=== PATIENT | female | born 1970 | race Caucasian/White ===

== ENCOUNTER 2018-04-02 15:24 | Emergency (ER) | payer SELFPAY ==
[~2018-04-02] VITALS: Ht 170.2 cm; Wt 127.3 kg
[~2018-04-02 15:24] MED LIST: ALBUTEROL S2.5 MG/.5 IN; AMBIEN5 MG OR; AMOXICILLIN500 MG OR; AMOXICILLIN500 MG PO; BACTRIM DS1 TAB OR; BI POLAR MED; CELEXA10 MG PO; CIPRO HC AU; FLEXERIL OR; LORTAB 10 OR; LORTAB 10 PO; LORTAB 5 OR; LORTAB5 OR; LORTAB5 PO; MECLIZINE25 M1 PO; MYCOSTATIN100000 MG EX; NAPROXEN500 MG OR; NO; NO HOME MEDS; PENICILLN VK250 MG PR; PERCOCET 5/325M1 TAB OR; PREDNISONE20 MG OR; REGLAN10 MG OR; SEPTRA DS1 TAB OR; TRAZODONE50 MG PO; ULTRAM50 M1 PO; ULTRAM50 MG PO; VENTOLIN HFA IN; ZITHROMAX500 MG OR
[2018-04-02 15:53] LABS: URINE BILIRUBIN - DIPSTICK NEGATIVE (NEGATIVE); URINE BLOOD DIPSTICK SMALL (NEGATIVE); URINE COLOR YELLOW; URINE GLUCOSE - DIPSTICK NEGATIVE (NEGATIVE); URINE KETONE NEGATIVE (NEGATIVE); URINE NITRITE - DIPSTICK NEGATIVE (Negative); URINE PROTEIN - DIPSTICK NEGATIVE (NEG-TRACE); URINE UROBILINOGEN - DIPSTICK 0.2 E.U./dL (0.2)
[2018-04-02 15:55] LABS: URINE LEUK ESTERASE SMALL (NEGATIVE)
[2018-04-02 15:59] LABS: URINE SQUAMOUS EPITHELIAL CELL FEW EPI/hpf (0-FEW); URINE WBC 50-100 WBC/hpf (0-5)
[2018-04-02] MEDS ORDERED: PYRIDIUM200 MG PO (16:04)
[2018-04-02] MEDS ORDERED: KEFLEX500 M1 PO (16:04)
[2018-04-02 16:12] VITALS: BP 161/78
== END 2018-04-02 16:18 | disposition home or self-care (01) | DRG 690 ==
LOC: ED 15:24
PROVIDERS: Emergency Medicine
DX: N39.0 Urinary tract infection, site not specified (principal); I10 Essential (primary) hypertension; J45.909 Unspecified asthma, uncomplicated; F17.210 Nicotine dependence, cigarettes, uncomplicated; Z87.442 Personal history of urinary calculi; Z87.440 Personal history of urinary (tract) infections

== ENCOUNTER 2019-01-15 01:43 | Emergency (ER) | payer SELFPAY ==
[~2019-01-15] VITALS: Ht 170.2 cm; Wt 113.6 kg
[~2019-01-15 01:43] MED LIST changes: +KEFLEX500 M1 PO; +PYRIDIUM200 MG PO
[2019-01-15] MEDS ORDERED: TRAMADOL HYDROC50 MG PO (03:04)
[2019-01-15 03:55] VITALS: BP 153/90
== END 2019-01-15 03:57 | disposition home or self-care (01) | DRG 605 ==
LOC: ED 01:43
DX: S00.83XA Contusion of other part of head, initial encounter (principal); I10 Essential (primary) hypertension; F17.210 Nicotine dependence, cigarettes, uncomplicated; Y04.2XXA Assault by strike against or bumped into by another person, initial encounter; Y92.009 Unspecified place in unspecified non-institutional (private) residence as the place of occurrence of the external cause

== ENCOUNTER 2019-09-29 11:04 | Observation (INO) | payer BC ==
[~2019-09-29] VITALS: Ht 170.2 cm; Wt 131.1 kg
[~2019-09-29 11:04] MED LIST changes: +TRAMADOL HYDROC50 MG PO
--- NOTE | 2019-09-29 11:10 | NUR ---
PT AMB TO ROOM BECOMES SLIGHTLY TACHYPNEIC WITH AUDIBLE WHEEZING. O2 SAT 100% ON RA
[2019-09-29 12:02] LABS: HEMATOCRIT 48.2 % (37.0-47.0); HEMOGLOBIN 15.7 g/dl (12.0-16.0); IMMATURE GRANULOCYTES 0.4 % (0.0-5.0); MEAN CELL VOLUME 86.1 fL CALC (80.0-100.0); MEAN CORPUSCULAR HGB CONC 32.6 g/dL CAL (32.0-36.0); NEUT# 7.5 thou/uL (2.00-7.15); RED BLOOD COUNT 5.6 mill/uL (4.20-5.60)
--- NOTE | 2019-09-29 12:15 | NUR ---
PT RESTING AND DENIES ANY NEEDS, CAN NO LONGER HEAR WHEEZING WITHOUT STETH. CALL LIGHT WITHIN REACH
--- NOTE | 2019-09-29 12:18 | NUR ---
BG RECHECK AT 422. MD NOTIFIED. PT DENIES ANY PAINS OR NEEDS. CALL LIGHT WITHIN REACH
--- NOTE | 2019-09-29 12:23 | NUR ---
PT AMB TO RESTROOM IN NO DISTRESS. PT TOLERATED WELL
[2019-09-29 12:26] LABS: ALBUMIN 4.1 g/dL (3.2-5.0); ALKALINE PHOSPHATASE 64 u/l (38-126); ANION GAP 11 (6-22 (CALC)); BUN 21 mg/dL (7-17); BUN/CREATININE RATIO 38 (12-20 (CALC)); CARBON DIOXIDE 27 mmol/l (22-30); CHLORIDE 98 mmol/l (95-108); CREATININE 0.6 mg/dL (0.5-1.0); GFR > 60 ML/MIN (>=60 (CALC)); GFR FOR AFR.AMER. > 60 ML/MIN (>=60 (CALC)); POTASSIUM 3.2 mmol/l (3.5-5.1); SGOT/AST 19 u/l (14-36); SODIUM 133 mmol/l (137-146); TOTAL PROTEIN 7.6 g/dL (6.3-8.2)
[2019-09-29 12:27] LABS: BILIRUBIN, TOTAL 0.4 mg/dL (0.0-1.4)
[2019-09-29 12:32] LABS: C-REACTIVE PROTEIN < 0.5 mg/dL (0-0.9)
--- NOTE | 2019-09-29 13:17 | NUR ---
PT STARTED TO VOMIT PERFUSLY AFTER INITIATING ANTIBIOTICS. SHE CLENCHES HER CHEST AND STATES HAVING AN ABRUPT PAIN OF 8/10. INFUSION STOPPED AND MD NOTIFIED. ANAPHYLAXIS MEDICATIONS USED. MED D/C PER MD. PT WILL BE MONITORED CLOSELY.
--- NOTE | 2019-09-29 13:30 | NUR ---
PT RESTING ON STRETCHER WITH CALL LIGHT WITHIN REACH.
--- NOTE | 2019-09-29 13:40 | NUR ---
ANTIBIOTICS INFUSING INTO PATENT IV
[2019-09-29] MEDS ORDERED: METFORMIN HCL500 M1 PO (14:26)
[2019-09-29] MEDS ORDERED: HYDROCHLOROTH12.5 MG PO (14:27)
[2019-09-29] MEDS ORDERED: SIMVASTATIN10 MG PO (14:27)
[2019-09-29] MEDS ORDERED: LISINOPRIL20 MG PO (14:28)
[2019-09-29] MEDS ORDERED: VENTOLIN H108 MCG/AC INHW/SPAC (14:29)
--- NOTE | 2019-09-29 14:30 | NUR ---
ASSISTED PT TO BR, BANDAR BERNARD
--- NOTE | 2019-09-29 14:30 | NUR ---
PT RESTING WITH EYES CLOSED
--- NOTE | 2019-09-29 15:40 | NUR ---
CALLED DR. MUNOZ FOR ORDERS AND UPDATE ON PT, NEW ORDERS PLACED WHERE PT IS GOING TO CHANGE FROM MED SURG TO ICU. TREATMENTS IN PROCESS
--- NOTE | 2019-09-29 15:40 | NUR ---
PT NOTIFIED OF PENDING STATUS AND WAIT BECAUSE OF BUSY ER. CALL LIGHT WITHIN REACH
--- NOTE | 2019-09-29 16:40 | NUR ---
PT NEEDED ASSISTANCE TO BR, PT DISCONNECTED AND ASSISTED TO BED SIDE COMMODE
--- NOTE | 2019-09-29 16:46 | NUR ---
PT UPDATED ON WAIT AND CHANGE OF EVENTS, HE VERBALIZED UNDERSTANDING. FLUIDS CONTINUE TO BE ADMINSITERED
--- NOTE | 2019-09-29 17:30 | NUR ---
PT NOTIFIED OF STATUS, NEEDS MET AND BELONGINGS BAGGED. CALL LIGHT WITHIN REACH
--- NOTE | 2019-09-29 18:25 | NUR ---
PT ARRIVED FROM ER VIA STRETCHER AMBUALTED TO THE UNIT.
--- NOTE | 2019-09-29 18:27 | NUR ---
GAVE REPORT TO CASA
--- NOTE | 2019-09-29 18:30 | NUR ---
PT TRANSPORTED TO [facility] STABLE AND IN NO DISTRESS. CARE ASSUMED TO CASA Admission Note Report Given to: Transported by: Wheelchair X Stretcher Transported with: X Nurse Transporter X Patent IV O2 X Inspector Location: ICU X MS2
[2019-09-29 18:48] VITALS: BP 131/70
--- NOTE | 2019-09-29 20:38 | NUR ---
PT MEDICATED ORDERS PROVIDE. TYLENOL PROVIDED FOR HEADACHE. PT DENIES ANY OTHER NEEDS AT THIS TIME.
--- NOTE | 2019-09-29 21:16 | NUR ---
PT MEDICATED ORDERS PROVIDE AND ASSESSMENT COMPLETED AT THIS TIME. MEDICATIONS REVIEWED W/EDUCATION AND ALLERGY HISTORY UPDATED AND DISCUSSED. ADMISSION QUESTIONS REVIEWED. PT MEDICATED W/TYLENOL FOR BRITO. ICE PROVIDED EXTRA PER REQUEST. DENIES ANY OTHER NEEDS.
[2019-09-29 23:55] VITALS: BP 113/75
--- NOTE | 2019-09-30 00:09 | NUR ---
PT SLEEPING, V/S ASSESSED.
[2019-09-30 04:16] VITALS: BP 133/71
--- NOTE | 2019-09-30 04:19 | NUR ---
PT V/S ASSESSED, PT DENIES ANY NEEDS AT THIS TIME. PT IS SLEEPING, NO S/O DISTRESS NOTED.
[2019-09-30 08:07] VITALS: BP 137/80
--- NOTE | 2019-09-30 09:04 | NUR ---
REPORT TAKEN FROM [facility]. PT V/S ASSESSED,PT ALERT AND ORIENTED; PT DENIES ANY NEEDS AT THIS TIME. PT IS EATING BREAKFAST,PT POC CARE DISCUSSED. NO DISTRESS NOTED.
[2019-09-30 11:10] VITALS: BP 123/71
[2019-09-30] MEDS ORDERED: LEVAQUIN750 MG PO (12:54)
[2019-09-30] MEDS ORDERED: PREDNISONE10 MG PO (12:54)
--- NOTE | 2019-09-30 14:10 | NUR ---
DICHARGED INSTRUCTIONS GIVEN AND EXPLAINED. PT VERBALIZED UNDERSTANDING OF INSTRUCTIONS. DISCHARGED IN STABLE CONDITION VIA WHEELCHAIR TO HOME WITH FAMILY. ALL BELONGS WERE SENT WITH PT.
--- NOTE | 2019-09-30 14:31 | NUR ---
IV SITE DISCONTINUED; CATH INTACT, SITE HEALTHY WITH NO EDEMA OR REDDNESS. PT VOICED NO DISCOMFORT.-
== END 2019-09-30 14:11 | disposition home or self-care (01) | DRG 178 ==
LOC: ED 11:04 → ED-I 13:09 → ED 13:18 → ED-I 13:19 → MS2 13:19
PROVIDERS: Family Medicine; ADMIT Internal Medicine; ATTEND Internal Medicine
DX: U07.1 COVID-19 (principal); J44.1 Chronic obstructive pulmonary disease with (acute) exacerbation; I10 Essential (primary) hypertension; E11.9 Type 2 diabetes mellitus without complications; F17.210 Nicotine dependence, cigarettes, uncomplicated
CPT/HCPCS: G0378

== ENCOUNTER 2020-04-28 17:11 | Emergency (ER) | payer OTHER, BC ==
[~2020-04-28] VITALS: Ht 167.6 cm; Wt 113.6 kg
[~2020-04-28 17:11] MED LIST changes: +HYDROCHLOROTH12.5 MG PO; +LEVAQUIN750 MG PO; +LISINOPRIL20 MG PO; +METFORMIN HCL500 M1 PO; +PREDNISONE10 MG PO; +SIMVASTATIN10 MG PO; +VENTOLIN H108 MCG/AC INHW/SPAC
[2020-04-28 17:54] LABS: HEMATOCRIT 44.7 % (37.0-47.0); HEMOGLOBIN 14.5 g/dl (12.0-16.0); IMMATURE GRANULOCYTES 0.2 % (0.0-5.0); MEAN CORPUSCULAR HGB 27.9 pG CALC (26.0-32.0); MEAN CORPUSCULAR HGB CONC 32.4 g/dL CAL (32.0-36.0); NEUT# 7.61 thou/uL (2.00-7.15); RED BLOOD COUNT 5.2 mill/uL (4.20-5.60)
[2020-04-28 17:56] LABS: URINE BILIRUBIN - DIPSTICK NEGATIVE (NEGATIVE); URINE BLOOD DIPSTICK TRACE-LYSED (NEGATIVE); URINE CLARITY CLEAR; URINE COLOR YELLOW; URINE GLUCOSE - DIPSTICK NEGATIVE (NEGATIVE); URINE KETONE NEGATIVE (NEGATIVE); URINE LEUK ESTERASE NEGATIVE (Negative); URINE NITRITE - DIPSTICK NEGATIVE (Negative); URINE PROTEIN - DIPSTICK NEGATIVE (NEG-TRACE); URINE SPECIFIC GRAVITY >=1.030; URINE UROBILINOGEN - DIPSTICK 0.2 E.U./dL (0.2)
[2020-04-28 18:11] LABS: ALKALINE PHOSPHATASE 73 u/l (38-126); ANION GAP 10 (6-22 (CALC)); BILIRUBIN, TOTAL 0.4 mg/dL (0.0-1.4); BUN 16 mg/dL (7-17); BUN/CREATININE RATIO 24 (12-20 (CALC)); CARBON DIOXIDE 26 mmol/l (22-30); CHLORIDE 103 mmol/l (95-108); CREATININE 0.7 mg/dL (0.5-1.0); GFR > 60 ML/MIN (>=60 (CALC)); GFR FOR AFR.AMER. > 60 ML/MIN (>=60 (CALC)); LIPASE 89 u/l (23-300); SGOT/AST 23 u/l (14-36); SODIUM 135 mmol/l (137-146); TOTAL PROTEIN 7.1 g/dL (6.3-8.2)
[2020-04-28 18:12] LABS: POTASSIUM 4.2 mmol/l (3.5-5.1)
[2020-04-28 20:52] VITALS: BP 130/88
== END 2020-04-28 20:52 | disposition home or self-care (01) | DRG 605 ==
LOC: ED 17:11
DX: S20.01XA Contusion of right breast, initial encounter (principal); M25.531 Pain in right wrist; M25.521 Pain in right elbow; G89.29 Other chronic pain; M25.511 Pain in right shoulder; E11.9 Type 2 diabetes mellitus without complications; I10 Essential (primary) hypertension; J44.9 Chronic obstructive pulmonary disease, unspecified; F41.9 Anxiety disorder, unspecified; F17.210 Nicotine dependence, cigarettes, uncomplicated; V43.51XA Car driver injured in collision with sport utility vehicle in traffic accident, initial encounter; Z79.84 Long term (current) use of oral hypoglycemic drugs
CPT/HCPCS: Q9967

== ENCOUNTER 2021-01-21 15:59 | Emergency (ER) | payer BC ==
[~2021-01-21] VITALS: Ht 167.6 cm; Wt 127.0 kg
[2021-01-21] MEDS ORDERED: AMOX/K CLAV875 M1 PO (17:41)
[2021-01-21] MEDS ORDERED: BACTROBAN TOP (17:41)
[2021-01-21 17:58] VITALS: BP 133/86
== END 2021-01-21 17:58 | disposition home or self-care (01) | DRG 605 ==
LOC: ED 15:59
DX: S61.451A Open bite of right hand, initial encounter (principal); S60.372A Other superficial bite of left thumb, initial encounter; E11.9 Type 2 diabetes mellitus without complications; I10 Essential (primary) hypertension; J44.9 Chronic obstructive pulmonary disease, unspecified; F41.9 Anxiety disorder, unspecified; F17.210 Nicotine dependence, cigarettes, uncomplicated; W54.0XXA Bitten by dog, initial encounter; Y92.009 Unspecified place in unspecified non-institutional (private) residence as the place of occurrence of the external cause; Z79.84 Long term (current) use of oral hypoglycemic drugs

== ENCOUNTER 2021-10-04 20:11 | Emergency (ER) | payer SELFPAY ==
[~2021-10-04] VITALS: Ht 167.6 cm; Wt 123.0 kg
[~2021-10-04 20:11] MED LIST changes: +AMOX/K CLAV875 M1 PO; +BACTROBAN TOP
[2021-10-04] MEDS ORDERED: ZOLOFT25 MG PO (20:56)
[2021-10-04] MEDS ORDERED: CYCLOBENZAPRINE10 MG PO (20:57)
[2021-10-04] MEDS ORDERED: PERCOCET 10/31 COMBO PO (20:58)
[2021-10-04] MEDS ORDERED: XANAX0.5 MG PO (20:58)
[2021-10-04] MEDS ORDERED: NIACIN ER500 M1 (20:59)
[2021-10-04] MEDS ORDERED: VIBRAMYCIN100 M2 PO (21:09)
[2021-10-04 22:22] VITALS: BP 134/69
== END 2021-10-04 22:31 | disposition home or self-care (01) | DRG 603 ==
LOC: ED 20:11
DX: L03.012 Cellulitis of left finger (principal); I10 Essential (primary) hypertension; E11.9 Type 2 diabetes mellitus without complications; J44.9 Chronic obstructive pulmonary disease, unspecified; F41.9 Anxiety disorder, unspecified; F32.A Depression, unspecified; F17.210 Nicotine dependence, cigarettes, uncomplicated; Z88.1 Allergy status to other antibiotic agents; Z79.84 Long term (current) use of oral hypoglycemic drugs

== ENCOUNTER 2022-05-27 21:46 | Emergency (ER) | payer OTHER ==
[~2022-05-27] VITALS: Ht 167.6 cm; Wt 122.0 kg
[~2022-05-27 21:46] MED LIST changes: +CYCLOBENZAPRINE10 MG PO; +NIACIN ER500 M1; +PERCOCET 10/31 COMBO PO; +VIBRAMYCIN100 M2 PO; +XANAX0.5 MG PO; +ZOLOFT25 MG PO
[2022-05-27 22:16] VITALS: BP 134/78
[2022-05-27 22:31] VITALS: BP 132/75
[2022-05-27 22:46] VITALS: BP 130/77
[2022-05-27 23:01] VITALS: BP 141/88
[2022-05-27 23:16] VITALS: BP 120/78
[2022-05-27 23:16] LABS: BASO% 0.7 % (0-3); EOS% 2.1 % (0-8); HEMATOCRIT 42.2 % (37.0-47.0); IMMATURE GRANULOCYTES 0.2 % (0.0-5.0); LYMPH% 17.9 % (15-41); MEAN CELL VOLUME 84.6 fL CALC (80.0-100.0); MEAN CORPUSCULAR HGB 28.1 pG CALC (26.0-32.0); MEAN CORPUSCULAR HGB CONC 33.2 g/dL CAL (32.0-36.0); MONO% 5.4 % (2-13); NEUT# 8.95 thou/uL (2.00-7.15); NEUT% 73.7 % (42-76); RED BLOOD COUNT 4.99 mill/uL (4.20-5.60); RED CELL DISTRI WIDTH 12.5 % (11.5-15.5)
[2022-05-27 23:23] LABS: ALBUMIN 3.9 g/dL (3.2-5.0); ALKALINE PHOSPHATASE 70 u/l (38-126); ANION GAP 9 (6-22 (CALC)); BILIRUBIN, TOTAL 0.3 mg/dL (0.02-1.3); BUN 10 mg/dL (7-17); BUN/CREATININE RATIO 17 (12-20 (CALC)); CARBON DIOXIDE 26 mmol/l (22-30); CHLORIDE 106 mmol/l (95-108); CREATININE 0.6 mg/dL (0.5-1.0); GFR FOR AFR.AMER. > 60 ML/MIN (>=60 (CALC)); GFR OTHER RACES > 60 ML/MIN (>=60 (CALC)); LIPASE 49 u/l (23-300); POTASSIUM 3.9 mmol/l (3.5-5.1); SGOT/AST 21 u/l (14-36); SODIUM 137 mmol/l (137-146)
[2022-05-27 23:26] LABS: ACT PARTIAL THROMBO TIME 25.2 SECONDS (20.0-32.5); PROTHROMBIN TIME 9.9 SECONDS (9.0-12.5)
[2022-05-27 23:31] VITALS: BP 143/74
[2022-05-27 23:51] LABS: URINE BILIRUBIN - DIPSTICK NEGATIVE (NEGATIVE); URINE BLOOD DIPSTICK TRACE-LYSED (NEGATIVE); URINE COLOR YELLOW; URINE GLUCOSE - DIPSTICK NEGATIVE (NEGATIVE); URINE KETONE NEGATIVE (NEGATIVE); URINE PROTEIN - DIPSTICK NEGATIVE (NEG-TRACE); URINE SPECIFIC GRAVITY 1.025; URINE UROBILINOGEN - DIPSTICK 0.2 E.U./dL (0.2)
[2022-05-28 00:01] LABS: URINE NITRITE - DIPSTICK POSITIVE (Negative)
[2022-05-28 00:02] LABS: URINE BACTERIA MODERATE hpf; URINE EPITHELIAL CELLS FEW EPI/hpf (0-FEW); URINE LEUK ESTERASE NEGATIVE (NEGATIVE)
[2022-05-28 05:37] VITALS: BP 143/74
== END 2022-05-28 05:39 | DRG 313 ==
LOC: ED 21:46
PROVIDERS: Family Medicine
DX: R07.9 Chest pain, unspecified (principal); I10 Essential (primary) hypertension; J44.9 Chronic obstructive pulmonary disease, unspecified; F32.A Depression, unspecified; F41.9 Anxiety disorder, unspecified
CPT/HCPCS: Q9967

== ENCOUNTER 2023-05-13 13:27 | Emergency (ER) | payer MEDICARE, MEDICAID ==
[2023-05-13] VITALS (30 sets, daily range): BP systolic 124–184; BP diastolic 72–105
[~2023-05-13] VITALS: Ht 167.6 cm; Wt 122.4 kg
[2023-05-13] MEDS ORDERED: NITROGLYCERIN 0.4 MG/TAB SL ONE (14:20)
[2023-05-13] MEDS ORDERED: ASPIRIN 81 MG/TAB PO ONE (14:20)
[2023-05-13 14:22] LABS: BASO% 0.8 % (0-3); EOS% 3.1 % (0-8); HEMATOCRIT 45.7 % (37.0-47.0); HEMOGLOBIN 15.4 g/dl (12.0-16.0); IMMATURE GRANULOCYTES 0.3 % (0.0-5.0); LYMPH% 20.6 % (15-41); MEAN CELL VOLUME 84.3 fL CALC (80.0-100.0); MEAN CORPUSCULAR HGB 28.4 pG CALC (26.0-32.0); MEAN CORPUSCULAR HGB CONC 33.7 g/dL CAL (32.0-36.0); MONO% 4.8 % (2-13); NEUT# 6.71 thou/uL (2.00-7.15); NEUT% 70.4 % (42-76); RED BLOOD COUNT 5.42 mill/uL (4.20-5.60); RED CELL DISTRI WIDTH 12.3 % (11.5-15.5); URINE BILIRUBIN - DIPSTICK Negative (NEGATIVE); URINE BLOOD DIPSTICK Trace-lysed (NEGATIVE); URINE GLUCOSE - DIPSTICK Negative (NEGATIVE); URINE KETONE Negative (NEGATIVE); URINE LEUK ESTERASE Negative (NEGATIVE); URINE NITRITE - DIPSTICK Negative (Negative); URINE PH 5.5 (4.5-8.0); URINE PROTEIN - DIPSTICK Negative (NEG-TRACE); URINE UROBILINOGEN - DIPSTICK 0.2 E.U./dL (0.2)
[2023-05-13 14:23] LABS: URINE COLOR Yellow
[2023-05-13 14:52] LABS: ALKALINE PHOSPHATASE 104 u/l (38-126); ANION GAP 8 (6-22 (CALC)); BUN 9 mg/dL (7-17); BUN/CREATININE RATIO 16 (12-20 (CALC)); CARBON DIOXIDE 27 mmol/l (22-30); CHLORIDE 105 mmol/l (95-108); CREATININE 0.6 mg/dL (0.5-1.0); GFR FOR AFR.AMER. > 60 ML/MIN (>=60 (CALC)); GFR OTHER RACES > 60 ML/MIN (>=60 (CALC)); POTASSIUM 3.9 mmol/l (3.5-5.1); SGOT/AST 27 u/l (14-36); SODIUM 136 mmol/l (137-146); TOTAL PROTEIN 7.2 g/dL (6.3-8.2)
[2023-05-13 14:53] LABS: BILIRUBIN, TOTAL 0.8 mg/dL (0.02-1.3)
[2023-05-13 14:59] LABS: PROTHROMBIN TIME 9.9 SECONDS (9.0-12.5)
[2023-05-13 17:18] LABS: LIPASE 86 u/l (23-300)
== END 2023-05-13 16:35 | disposition left against medical advice (07) ==
LOC: ED 13:27 → ED-I 16:00 → ED 16:35
PROVIDERS: Nurse Practitioner
DX: R07.9 Chest pain, unspecified (principal); I10 Essential (primary) hypertension; E11.9 Type 2 diabetes mellitus without complications; J44.9 Chronic obstructive pulmonary disease, unspecified; E78.5 Hyperlipidemia, unspecified; F41.9 Anxiety disorder, unspecified; F32.A Depression, unspecified; T46.6X6A Underdosing of antihyperlipidemic and antiarteriosclerotic drugs, initial encounter; T46.5X6A Underdosing of other antihypertensive drugs, initial encounter; T38.3X6A Underdosing of insulin and oral hypoglycemic [antidiabetic] drugs, initial encounter; Z91.128 Patient's intentional underdosing of medication regimen for other reason; Z79.84 Long term (current) use of oral hypoglycemic drugs; Z53.29 Procedure and treatment not carried out because of patient's decision for other reasons; Z20.822 Contact with and (suspected) exposure to COVID-19

== ENCOUNTER 2023-10-14 12:30 | Emergency (ER) | payer MEDICARE, MEDICAID ==
[2023-10-14] VITALS (15 sets, daily range): BP systolic 115–157; BP diastolic 60–88
[~2023-10-14] VITALS: Ht 167.6 cm; Wt 100.0 kg
[~2023-10-14 12:30] MED LIST changes: +ADLT ASA LOW81 MG PO; +ADVAIR DISK1 PO; +AMLODIPINE BESYL5 MG PO; +CELEBREX100 M1 PO; +COZAAR100 MG PO; +CRESTOR20 MG PO; +DALIRESP250 MCG PO; +MELOXICAM7.5 MG PO; +PLAVIX75 MG PO; +VARENICLINE TART1 M1 PO
[2023-10-14] MEDS ORDERED: IPRATROPIUM-Albuterol 0.5MG-2.5MG/3 ML NEB ONE ×3 (12:50→15:00)
[2023-10-14] MEDS ORDERED: methylPREDNISolone SODIUM SUCC 125 MG/2 ML SDV IV ONE (12:50)
[2023-10-14 13:13] LABS: BASO% 0.7 % (0-3); EOS% 4.4 % (0-8); HEMATOCRIT 42.8 % (37.0-47.0); HEMOGLOBIN 13.9 g/dl (12.0-16.0); IMMATURE GRANULOCYTES 0.1 % (0.0-5.0); LYMPH% 16.8 % (15-41); MEAN CELL VOLUME 85.9 fL CALC (80.0-100.0); MEAN CORPUSCULAR HGB 27.9 pG CALC (26.0-32.0); MEAN CORPUSCULAR HGB CONC 32.5 g/dL CAL (32.0-36.0); MONO% 4.9 % (2-13); NEUT# 6.89 thou/uL (2.00-7.15); NEUT% 73.1 % (42-76); RED BLOOD COUNT 4.98 mill/uL (4.20-5.60); RED CELL DISTRI WIDTH 12.3 % (11.5-15.5)
[2023-10-14 13:24] LABS: ALBUMIN 3.6 g/dL (3.2-5.0); ALKALINE PHOSPHATASE 69 u/l (38-126); BUN 8 mg/dL (7-17); BUN/CREATININE RATIO 13 (12-20 (CALC)); CHLORIDE 109 mmol/l (95-108); CREATININE 0.6 mg/dL (0.5-1.0); ESTIMATED GFR 109 ML/MIN (>=90 (CALC)); POTASSIUM 3.9 mmol/l (3.5-5.1); SGOT/AST 32 u/l (14-36); SODIUM 134 mmol/l (137-146); TOTAL PROTEIN 6.9 g/dL (6.3-8.2)
[2023-10-14 13:38] LABS: ANION GAP 9 (6-22 (CALC)); BILIRUBIN, TOTAL 0.9 mg/dL (0.02-1.3); CARBON DIOXIDE 20 mmol/l (22-30)
[2023-10-14] MEDS ORDERED: MAGNESIUM SULFATE HEPTAHYDRATE 50 ML IV ONE (15:00)
[2023-10-14] MEDS ORDERED: PREDNISONE20 MG PO (16:14)
[2023-10-14] MEDS ORDERED: ZPAK PO (16:14)
[2023-10-14] MEDS ORDERED: IPRATROPIU0.5 MG/3 M IN (16:35)
[2023-10-14] MEDS ORDERED: NEBULIZER KIT/TUBING IN (16:35)
== END 2023-10-14 17:16 | disposition home or self-care (01) ==
LOC: ED 12:30
PROVIDERS: Nurse Practitioner
DX: J44.1 Chronic obstructive pulmonary disease with (acute) exacerbation (principal); I10 Essential (primary) hypertension; E11.9 Type 2 diabetes mellitus without complications; E78.5 Hyperlipidemia, unspecified; E66.9 Obesity, unspecified; F41.9 Anxiety disorder, unspecified; F32.A Depression, unspecified; Z20.822 Contact with and (suspected) exposure to COVID-19
CPT/HCPCS: J3475

== ENCOUNTER 2023-10-22 00:31 | Emergency (ER) | payer MEDICARE, MEDICAID ==
[~2023-10-22] VITALS: Ht 167.6 cm; Wt 75.0 kg
[2023-10-22] VITALS (7 sets, daily range): BP systolic 100–143; BP diastolic 46–79
[~2023-10-22 00:31] MED LIST changes: +IPRATROPIU0.5 MG/3 M IN; +NEBULIZER KIT/TUBING IN; +PREDNISONE20 MG PO; +ZPAK PO
[2023-10-22] MEDS ORDERED: SODIUM CHLORIDE 0.9% 1,000 ML IV ONE (01:25)
[2023-10-22] MEDS ORDERED: KETOROLAC TROMETHAMINE 30 MG/ML SDV IV ONE (01:25)
[2023-10-22 01:49] LABS: BASO% 0.4 % (0-3); HEMATOCRIT 40.8 % (37.0-47.0); HEMOGLOBIN 13.6 g/dl (12.0-16.0); IMMATURE GRANULOCYTES 0.3 % (0.0-5.0); LYMPH% 23.4 % (15-41); MEAN CELL VOLUME 84.1 fL CALC (80.0-100.0); MEAN CORPUSCULAR HGB CONC 33.3 g/dL CAL (32.0-36.0); MONO% 6.1 % (2-13); NEUT# 10.77 thou/uL (2.00-7.15); NEUT% 67.8 % (42-76); RED BLOOD COUNT 4.85 mill/uL (4.20-5.60); RED CELL DISTRI WIDTH 12.3 % (11.5-15.5)
[2023-10-22 02:00] LABS: ALBUMIN 3.3 g/dL (3.2-5.0); BILIRUBIN, TOTAL 0.3 mg/dL (0.02-1.3); CREATININE 0.6 mg/dL (0.5-1.0); TOTAL PROTEIN 5.9 g/dL (6.3-8.2)
[2023-10-22] MEDS ORDERED: LORazepam 2 MG/ML IV ONE (03:40)
== END 2023-10-22 04:16 | disposition home or self-care (01) ==
LOC: ED 00:31
PROVIDERS: Emergency Medicine
DX: R10.31 Right lower quadrant pain (principal); E11.9 Type 2 diabetes mellitus without complications; I10 Essential (primary) hypertension; E78.5 Hyperlipidemia, unspecified; J44.9 Chronic obstructive pulmonary disease, unspecified; F32.A Depression, unspecified; F41.9 Anxiety disorder, unspecified; Z88.8 Allergy status to other drugs, medicaments and biological substances; Z88.1 Allergy status to other antibiotic agents; Z91.013 Allergy to seafood

== ENCOUNTER 2023-12-16 15:42 | Emergency (ER) | payer MEDICARE, MEDICAID ==
[~2023-12-16] VITALS: Ht 167.6 cm; Wt 240.0 kg
[2023-12-16] MEDS ORDERED: DiphenhydrAMINE HCL 50 MG/ML SDV IV ONE (16:35)
[2023-12-16] MEDS ORDERED: DEXAMETHASONE SOD. PHOSPHATE 10 MG/ML VIAL IV ONE (16:35)
[2023-12-16 17:07] LABS: BASO% 0.8 % (0-3); EOS% 5.3 % (0-8); IMMATURE GRANULOCYTES 0.2 % (0.0-5.0); LYMPH% 14.9 % (15-41); MEAN CELL VOLUME 82.8 fL CALC (80.0-100.0); MEAN CORPUSCULAR HGB 27.8 pG CALC (26.0-32.0); MEAN CORPUSCULAR HGB CONC 33.6 g/dL CAL (32.0-36.0); MONO% 5.1 % (2-13); NEUT# 7.65 thou/uL (2.00-7.15); NEUT% 73.7 % (42-76); RED BLOOD COUNT 5.71 mill/uL (4.20-5.60)
[2023-12-16 17:08] LABS: HEMATOCRIT 47.3 % (37.0-47.0); HEMOGLOBIN 15.9 g/dl (12.0-16.0)
[2023-12-16 17:18] LABS: ALBUMIN 3.8 g/dL (3.2-5.0); BILIRUBIN, TOTAL 0.7 mg/dL (0.02-1.3); CREATININE 0.9 mg/dL (0.5-1.0); TOTAL PROTEIN 6.9 g/dL (6.3-8.2)
[2023-12-16 17:19] LABS: POTASSIUM 5.1 mmol/l (3.5-5.1)
[2023-12-16] MEDS ORDERED: TETRACAINE HCL 0.5 %/4 ML SOL OD ONE (17:25)
[2023-12-16] MEDS ORDERED: FLUORESCEIN SODIUM 1 MG EA OD ONE (17:25)
[2023-12-16] MEDS ORDERED: FLUORESCEIN SODIUM 1 MG EA OU ONE (20:25)
[2023-12-16] MEDS ORDERED: HYDROcodone 5 MG/Acetaminophen 325 MG/COMBO PO ONE (20:40)
[2023-12-16] MEDS ORDERED: DECADRON4 MG PO (20:44)
[2023-12-16] MEDS ORDERED: ACYCLOVIR400 MG PO (20:44)
[2023-12-16] MEDS ORDERED: GABAPENTIN300 M2 PO (20:44)
[2023-12-16 21:42] VITALS: BP 144/88
== END 2023-12-16 21:45 | disposition home or self-care (01) ==
LOC: ED 15:42
PROVIDERS: Family Medicine
DX: G50.8 Other disorders of trigeminal nerve (principal); I10 Essential (primary) hypertension; E11.9 Type 2 diabetes mellitus without complications; J44.9 Chronic obstructive pulmonary disease, unspecified; E66.9 Obesity, unspecified; F32.A Depression, unspecified; F41.9 Anxiety disorder, unspecified; Z86.73 Personal history of transient ischemic attack (TIA), and cerebral infarction without residual deficits
CPT/HCPCS: Q9967

== ENCOUNTER 2023-12-18 22:16 | Emergency (ER) | payer MEDICARE, MEDICAID ==
[~2023-12-18] VITALS: Ht 167.6 cm; Wt 132.0 kg
[~2023-12-18 22:16] MED LIST changes: +ACYCLOVIR400 MG PO; +DECADRON4 MG PO; +GABAPENTIN300 M2 PO
[2023-12-18] MEDS ORDERED: FLUORESCEIN SODIUM 1 MG EA OD ONE (22:30)
[2023-12-18] MEDS ORDERED: MORPHINE SULFATE 4 MG/ML VIAL IV ONE (22:35)
[2023-12-18 22:46] VITALS: BP 171/102
[2023-12-18] MEDS ORDERED: ACYCLOVIR SODIUM 1,000 MG VIAL IV ONE (22:50)
[2023-12-18 23:16] VITALS: BP 138/109
[2023-12-18] MEDS ORDERED: ACYCLOVIR SODIUM 1,000 MG in SODIUM CHLORIDE 0.9% 250 ML IV SCH (23:30)
[2023-12-18] MEDS ORDERED: POLYMYXIN B TRIMETHOPRIM OD ONE (23:35)
[2023-12-18 23:46] VITALS: BP 137/77
[2023-12-19] VITALS (15 sets, daily range): BP systolic 98–165; BP diastolic 44–101
[2023-12-19] MEDS ORDERED: POLYMYXIN B TRIMETHOPRIM OD SCH
[2023-12-19] MEDS ORDERED: MORPHINE SULFATE 4 MG/ML VIAL IV ONE (01:10)
[2023-12-19] MEDS ORDERED: TRIFLURIDINE 1% OD (02:40)
[2023-12-19] MEDS ORDERED: CYCLOPENTOLATE 0.5% OD (02:40)
[2023-12-19] MEDS ORDERED: VALTREX1 GM PO (02:40)
[2023-12-19] MEDS ORDERED: LORTAB 1010 MG PO (02:51)
[2023-12-19] MEDS ORDERED: HYDROcodone 7.5 MG/Acetaminophen 325 MG/COMBO PO ONE (03:05)
== END 2023-12-19 04:13 | disposition home or self-care (01) ==
LOC: ED 22:16
DX: B02.30 Zoster ocular disease, unspecified (principal); B02.22 Postherpetic trigeminal neuralgia; I10 Essential (primary) hypertension; E11.9 Type 2 diabetes mellitus without complications; J44.9 Chronic obstructive pulmonary disease, unspecified; E66.9 Obesity, unspecified; F41.9 Anxiety disorder, unspecified; F32.A Depression, unspecified
CPT/HCPCS: J0133